=== PATIENT | female | born 2000 | race Caucasian/White ===

== ENCOUNTER 2024-08-18 20:44 | Emergency (ER) | payer BC ==
[~2024-08-18] VITALS: Ht 167.6 cm; Wt 59.1 kg
[2024-08-18 21:33] LABS: BASOPHILS # (AUTO) 0.1 X10'3 (0-0.2); BASOPHILS % (AUTO) 0.8 % (0-1); EOSINOPHILS # (AUTO) 0.6 X10'3 (0-0.9); EOSINOPHILS % (AUTO) 8.4 % (0-6); HEMATOCRIT 39.1 % (35.0-45.0); HEMOGLOBIN 13.4 g/dl (12.0-16.0); LYMPHOCYTES # (AUTO) 2.5 X10'3 (1.1-4.8); LYMPHOCYTES % (AUTO) 36.7 % (21-51); MEAN CORPUSCULAR HGB CONC 34.2 g/dL (33.0-36.5); MEAN CORPUSCULAR VOLUME 87.7 FL (78-98); MEAN PLATELET VOLUME 10.1 FL (7.4-10.4); MONOCYTES # (AUTO) 0.5 X10'3 (0-0.9); MONOCYTES % (AUTO) 6.6 % (2-12); NEUTROPHILS # (AUTO) 3.3 X10'3 (1.8-7.7); NEUTROPHILS % (AUTO) 47.5 % (42-75); PLATELET COUNT 166 X10'3 (140-440); RED BLOOD COUNT 4.46 X10'6 (4.20-5.60); RED CELL DISTRIBUTION WIDTH 13.4 % (11.5-14.5); WHITE BLOOD COUNT 6.9 X10'3 (4.5-11.0)
[2024-08-18 21:47] LABS: ALANINE AMINOTRANSFERASE 77 U/L (12-78); ALBUMIN 3.8 G/DL (3.4-5.0); ALBUMIN/GLOBULIN RATIO 1.1 (1.1-1.5); ALKALINE PHOSPHATASE 37 IU/L (46-116); ANION GAP 6 (8-16); ASPARTATE AMINO TRANSFERASE 47 U/L (10-37); BILIRUBIN,TOTAL 0.3 MG/DL (0.1-1.0); BLOOD UREA NITROGEN 14 MG/DL (7-18); BUN/CREATININE RATIO 19.7 (10.0-20.0); CALCIUM 8.5 MG/DL (8.5-10.1); CHLORIDE 104 MMOL/L (99-107); CREATININE 0.71 MG/DL (0.40-0.90); GLUCOSE 109 MG/DL (70-104); LIPASE 31 U/L (16-77); POTASSIUM 3.3 MMOL/L (3.5-5.1); SODIUM 136 MMOL/L (135-145); TOTAL CARBON DIOXIDE 26.3 MMOL/L (24-32); TOTAL PROTEIN 7.3 G/DL (6.4-8.2); eCRCL 114 ML/MIN; eGFR > 90 ML/MIN
[2024-08-18 22:35] LABS: URINE HCG NEGATIVE (NEG)
[2024-08-18 22:39] LABS: BILIRUBIN,URINE NEGATIVE (Neg); CLARITY,URINE CLEAR (Clear); COLOR,URINE YELLOW (Yellow); GLUCOSE, URINE NEGATIVE (Neg); KETONES,URINE NEGATIVE (Neg); LEUKOCYTE ESTERASE ,URINE NEGATIVE (Neg); NITRITES, URINE NEGATIVE (Neg); OCCULT BLOOD,URINE NEGATIVE (Neg); PH,URINE 6.5 (4.8-8.0); PROTEIN,URINE NEGATIVE (Neg); UROBILINOGEN,URINE 0.2 E.U/dL (0.2-1.0)
[2024-08-18 22:46] LABS: UA COLLECTION TYPE CLN CATCH MIDSTREAM
[2024-08-18] MEDS: mag hydrox/Alum hydrox/simeth 30ml oral suspension PO ONE (23:52)
[2024-08-18] MEDS: LIDOcaine 2% Viscous 15ml cup MM ONE (23:52)
[2024-08-18] MEDS: ondansetron 4mg rapidly disintigrating tab PO ONE (23:52)
[2024-08-18] MEDS: famotidine 20mg tablet PO ONE (23:52)
[2024-08-19] MEDS ORDERED: PANT-47 PO (00:20)
[2024-08-19] MEDS ORDERED: ONDA-245 PO (00:20)
[2024-08-19] MEDS: pantoprazole 40mg Tablet.DR PO ONE (00:22)
[2024-08-19 00:36] VITALS: BP 109/66; PULSE 66; RESP 18; TEMP 98.6; O2SAT 99
== END 2024-08-19 00:37 | disposition home or self-care (01) ==
LOC: ER 20:45
DX: K21.9 Gastro-esophageal reflux disease without esophagitis (principal); K29.60 Other gastritis without bleeding
CPT/HCPCS: 36415; 80053; 81003; 81025; 83690; 85025; 99284